=== PATIENT | female | born 1970 | race Two or more races ===

== ENCOUNTER 2017-07-21 10:23 | Emergency (ER) | payer SELFPAY ==
[~2017-07-21] VITALS: Ht 134.6 cm; Wt 63.5 kg
[2017-07-21] MEDS ORDERED: IBUPROFEN600 MG ORAL (11:11)
--- NOTE | 2017-07-21 11:13 | Emergency Room Report ---
History of Present Illness General Chief Complaint: Pain Source: Patient Present Illness HPI Patient present with complaints of left-sided breast pain She reports the pain started today Denies any fall or trauma Patient herself cannot feel any masses denies any fevers or chills Denies any headache Denies the likelihood of being Pain is a tenderness and sharp pain denies any change with position Allergies: Coded Allergies: No Known Allergies (Unverified , 07/21/17) Patient History Past Medical History: see triage record Pertinent Family History: none Last Menstrual Period: 05/2017 Reviewed Nursing Documentation: PMH: Agreed, PSxH: Agreed Nursing Documentation-PMH Past Medical History: No Stated History Review of Systems All Other Systems: negative except mentioned in HPI Physical Exam Vital Signs Date Time Temp Pulse Resp B/P (MAP) Pulse Ox O2 Delivery O2 Flow Rate FiO2 07/21/17 10:35 98.2 80 14 133/76 99 Room Air Sp02 EP Interpretation: reviewed, normal General Appearance: well appearing, no apparent distress Head: normocephalic, atraumatic Eyes: bilateral eye PERRL, bilateral eye EOMI ENT: hearing grossly normal, normal pharynx, TMs + canals normal, uvula midline Neck: full range of motion, supple, no meningismus, no bony tend Respiratory: lungs clear, normal breath sounds, no rhonchi, no respiratory distress, no retraction, no accessory muscle use Cardiovascular #1: normal peripheral pulses, regular rate, rhythm, no edema, no gallop, no JVD, no murmur Gastrointestinal: normal bowel sounds, non tender, soft, no mass, no organomegaly, non-distended, no guarding, no hernia, no pulsatile mass, no rebound Genitourinary: no CVA tenderness Musculoskeletal: normal inspection Neurologic: oriented x3, responsive, 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, motor strength/ tone normal, sensory intact Psychiatric: mood/affect normal Skin: normal color, no rash, warm/dry, palpation normal, other - A more focal left-sided breast exam with female nurse in the room, reveals no signs of palpable mass there is no erythema, no discharge from the area we region, there are no lymphadenopathy palpated in the axilla, patient points to the lateral aspect of the breast tissue itself the discomfort no other rash was noticed Lymphatic: normal inspection, no adenopathy Medical Decision Making Diagnostic Impression: Primary Impression: breast pain ER Course Patient's evaluation here is fairly benign however multiple differentials can be missed without further imaging such as mammogram Patient will require close followup There was no other emergency pathology requiring imaging in the emergency room Last Vital Signs Date Time Temp Pulse Resp B/P (MAP) Pulse Ox O2 Delivery O2 Flow Rate FiO2 07/21/17 10:35 98.2 80 14 133/76 99 Room Air Status: improved Disposition: HOME, SELF-CARE Condition: Improved Scripts Ibuprofen* (MOTRIN*) 600 Mg Tablet 600 MG ORAL Q8H Y for For Pain, #20 TAB 0 Refills Prov: MALCOLM OVIEDO D.O. 07/21/17 Patient Instructions: Breast Tenderness Additional Instructions: The exam today does not reveal any palpable masses or signs of infection. He require followup to have mammogram obtained which will provide further information regarding the discomfort MALCOLM OVIEDO D.O. Jul 21, 2017 11:13
[2017-07-21 11:30] VITALS: BP 0/0
== END 2017-07-21 11:54 | disposition home or self-care (01) ==
LOC: EMR 11:14
DX: N64.4 Mastodynia (principal)
CPT/HCPCS: 99283